=== PATIENT | female | born 1945 | race African-American/Black ===

== ENCOUNTER 2019-11-11 07:38 | Outpatient (CLI) | payer MEDICARE ==
[~2019-11-11] VITALS: Ht 156.2 cm; Wt 77.3 kg
[2019-11-11] MEDS ORDERED: ALBUTEROL SULF8.5 GM INH (07:43)
[2019-11-11] MEDS ORDERED: CARAFATE1 G PO (07:43)
[2019-11-11] MEDS ORDERED: BP MED (07:44)
[2019-11-11] MEDS ORDERED: KLOR-CON M2020 MEQ PO (07:44)
[2019-11-11 08:23] LABS: APTT 25.1 SECONDS (22.8-39.4); INR 0.93 (0.85-1.17)
[2019-11-11 08:51] LABS: BASOPHILS 0.1 % (0-2); EOSINOPHILS 1.3 % (0-7); HEMATOCRIT 44.2 % (36.0-48.0); HEMOGLOBIN 14.6 g/dL (12-16); IMMATURE GRANULOCYTES 0.4 % (0-5); LYMPHOCYTES 42.1 % (15-50); MCH 29.3 pg (26.0-34.0); MCV 88.6 fL (80.0-100.0); MEAN PLATELET VOLUME 9.7 fL (7.4-10.4); NEUTROPHILS 50.1 % (40-80); PLATELET COUNT 269 10x3/uL (130-400); RBC 4.99 10x6/uL (4.00-5.40); RDW 13.1 % (11.5-14.5); WBC 6.7 10x3/uL (4.8-10.8)
[2019-11-11 08:58] LABS: CALC OSMOLALITY 286 mosm/kg (275-300); CALCIUM 9.8 mg/dL (8.5-10.1); CARBON DIOXIDE 19.8 mmol/L (21.0-32.0); CHLORIDE - SERUM 108 mmol/L (98-107); CREATININE - SERUM 1.1 mg/dL (0.6-1.3); GLUCOSE 105 mg/dL (74-106); POTASSIUM - SERUM 3.5 mmol/L (3.5-5.1); SODIUM 143 mmol/L (136-145); UREA NITROGEN 18 mg/dL (7-18); eGFR NON AFRICAN AMERICAN 52 mL/min (90-120)
[2019-11-11 09:13] LABS: ALBUMIN 3.8 g/dL (3.4-5.0); ALKALINE PHOSPHATASE 129 U/L (46-116); ALT (SGPT) 26 U/L (10-68); BILIRUBIN - TOTAL 0.38 mg/dL (0.2-1.3); CKMB 1.3 U/L (0.0-3.6); CREATINE KINASE 209 UL (21-215); MAGNESIUM - SERUM 1.8 mg/dL (1.8-2.4); TROPONIN-I 0.022 ng/mL (0.000-0.060)
[2019-11-11] MEDS ORDERED: FLUTICASONE PRO16 GM NASAL (10:37)
[2019-11-11] MEDS ORDERED: FUROSEMIDE20 MG PO (10:38)
[2019-11-11] MEDS ORDERED: SINGULAIR10 MG PO (10:38)
[2019-11-11] MEDS ORDERED: KLOR-CON 1010 MEQ PO (10:39)
[2019-11-11] MEDS ORDERED: ULTRAM50 MG PO (10:39)
[2019-11-11] MEDS ORDERED: ZANAFLEX4 MG PO (10:41)
[2019-11-11] MEDS ORDERED: DIPROLENE 0.05%60 M1 TOPICAL (10:42)
--- NOTE | 2019-11-11 15:03 | NUR ---
RECEIVED PT FROM ER. PT IS AAO AND UP AD ALESSANDRO. RR EVEN AND UNLABORED ON 2L 02. PIV SALINE LOCKED. TELEMETRY PLACED ON PT, BIGEMINAL PAC'S AT 61. NO S/S OF DISTRESS NOTED. QUICKSTART, MED REQ, AND HISTORY COMPLETE. PT ORIENTED TO ROOM. CALL LIGHT W/I REACH.
[2019-11-11 15:06] VITALS: BP 128/60; Ht 156.2 cm; Wt 77.3 kg
--- NOTE | 2019-11-11 19:19 | NUR ---
PT IS RESTING WITH EYES CLOSED RESP EVEN AND NON LABERED BED LOW AND LOCKED FAMILY IS ALSO PRESENT
[2019-11-11 20:30] VITALS: BP 156/61
[2019-11-12 00:31] VITALS: BP 148/66
--- NOTE | 2019-11-12 01:20 | NUR ---
I have reviewed this patient and I concur with the Shift Assessment completed by the Licensed Practical Nurse today this shift.
[2019-11-12 04:43] VITALS: BP 137/62
--- NOTE | 2019-11-12 07:17 | NUR ---
REPORT RECEIVED. WILL CONTINUE WITH POC. PT CURRENTLY SITTING ON EDGE OF BED. CALL LIGHT W/I REACH. RR EVEN AND UNLABORED ON 2L 02. L.WRIST PIV IS SALINE LOCKED. PT STATES "HUNG HAD THE BEST NIGHT HUNG HAD IN A LONG TIME, I SLEPT GREAT.". PT DENIES ANY NEEDS AT THIS TIME. WILL CTM.
--- NOTE | 2019-11-12 08:03 | HP ---
PATIENT: VIKI ORTIZ MEDICAL RECORD: [id number] ACCOUNT: [id number] LOCATION:[address] : 47 ADMISSION DATE: 11/11/19 PCP: BEATRICE TIDWELL HISTORY AND PHYSICAL EXAMINATION DIAGNOSES: 1. Chest pain compatible with angina. 2. Hypertension. 3. Hyperlipidemia. 4. Palpitations. HISTORY OF PRESENT ILLNESS: Mrs. Viki Ortiz presents with palpitations and chest pain. This has been going on for greater than a week, worse chest pain she had was this morning. Her EKG has bigeminal PACs, but no ST-T abnormalities. She was given Lopressor. It improved the PACs; however, she continues to have them. She is currently pain free. She has no history of ischemic heart disease. She does have a smoking history PHYSICAL EXAMINATION: CONSTITUTIONAL/GENERAL APPEARANCE: Well nourished, well developed, appears stated age. EYES: Lids and conjunctivae noninjected. No discharge. No pallor. ENT: Lips within normal limit. No cyanosis. No pallor. NECK: Carotid arteries, bilateral normal upstroke. No bruits. No thrills. No jugular venous pressure or distention. CERVICAL LYMPH NODES: Nontender. Nonenlarged. THYROID: Not enlarged. No nodules. CARDIOVASCULAR: Precordial exam, nondisplaced. No heaves or pericardial thrills. Rate and rhythm, regular. Heart sounds, normal S1, normal S2. No S3, no gallop, no rub. Systolic murmur, not heard. Diastolic murmur, not heard. RESPIRATORY: Respiratory effort, unlabored. Normal curvature. No thoracic deformity. No chest wall tenderness. Percussion, resonant. Auscultation, clear. No wheezes, no rales, no rhonchi. ABDOMEN: Soft, nondistended, nontender. No abdominal pain, no vomiting and normal appetite. MUSCULOSKELETAL: No joint tenderness, normal gait, normal tone. SKIN: Warm and dry. REVIEW OF SYSTEMS: The patient reports easy bruising but reports no swollen glands. The patient reports no fever, no night sweats, no significant weight gain, no significant weight loss. No significant exercise tolerance. The patient reports no dry eyes, no irritation, no vision change. Patient reports no difficulty hearing and no ear pain. Patient reports no frequent nose bleeds or nose and sinus problems. Patient reports on arm pain on exertion. No shortness of breath while lying down. No history of heart murmur. Patient reports no cough, no wheezing or coughing up blood. Patient reports no abdominal pain, no vomiting. Normal appetite. No diarrhea and not vomiting blood. No nausea and no constipation. Patient reports no incontinence. No difficulty urinating. No hematuria. No increased frequency. Patient reports no muscle aches. No weakness, no arthralgias, no back pain. No swelling of the extremities. Patient reports no abnormal mole, no jaundice, no rashes. Reports no loss of consciousness. No weakness and no numbness. No seizures, dizziness, or headaches. The patient reports no depression, no sleep disturbance, feeling safe in a relationship and no alcohol abuse. Patient reports on fatigue. Reports no runny nose or sinus pressure. No itching, no hives, and no frequent HISTORY AND PHYSICAL [id number] STORMYVIKI sneezing. FAMILY HISTORY: Negative for coronary artery disease, positive for hypertension. SOCIAL HISTORY: She is retired and lives in [facility] with her family. Denies smoking or ETOH. OVERALL IMPRESSION: Chest pain compatible with angina. We will risk stratify with stress testing Cardiolite imaging. Further care depends upon findings of the stress test. TRANSINT:[id number] Voice Confirmation ID: [id number] DOCUMENT ID: [id number] OLIVIA CAZARES MD at 0803 CC: [id number] DICTATION DATE: 11/11/19 1209 SENIOR WEB ARCHITECT: 11/11/19 1318 [facility] [address] [place] [address]
[2019-11-12 08:51] VITALS: BP 137/59
[2019-11-12] MEDS ORDERED: LOPRESSOR25 MG PO (09:34)
--- NOTE | 2019-11-12 10:55 | NUR ---
PT DISCHARGED HOME VIA WHEELCHAIR WITH FAMILY. PIV REMOVED WITH CATHETER TIP FULLY INTACT. TELEMETRY REMOVED AND RETURNED. PT SIGNED PROPER DISCHARGE INSTRUCTIONS AND REMOVED ALL VALUABLES FROM THE ROOM.
--- NOTE | 2019-11-18 11:13 | EC ---
PATIENT:IVAN BURROWS DATE OF SERVICE: 11/11/19 SEX: F MEDICAL RECORD: [id number] DATE OF : 47 LOCATION:[facility] AGE OF PATIENT: 73 ADMISSION DATE: 11/11/19 REFERRING PHYSICIAN: INTERPRETING PHYSICIAN: OLIVIA SHIN MD ECHOCARDIOGRAM REPORT ECHO CHARGES 4 ECHO COMPLETE Date: 11/11/19 CLINICAL DIAGNOSIS: CP ECHOCARDIOGRAPHIC MEASUREMENTS (adult normal given) AC root (d.<3.7cm) 2.5 cm LV Septum d (<1.2 cm> 0.9 cm Valve Excursion 2.0 cm LV Septum (systole) 1.6 cm Left Atria (s.<4.0cm> 3.0 cm LVPW d(<1.2cm) 0.9 cm RV (d.<2.3cm) 2.3 cm LVPW (sytole) 1.0 cm LV diastole(<5.6CM) 4.8 cm MV E-F(>70mm/sec) cm LV systole 3.5 cm LVOT Diameter 1.6 cm MV exc.(>10mm) cm Est.ejection fraction (50-75%) % DOPPLER: LVIT cm/sec A 95 cm/sec E 71 cm/sec LA cm/sec RVSP 21.9 mmHg LVOT 108 cm/sec AOP1/2T m/s Asc. Ao 148 cm/sec RVOT 43 cm/sec RA cm/sec PA 103 cm/sec AV Gradient Peak 8.8 mmHg AV Mean 3.0 mmHg AV Area 2.0 cm MV Gradient Peak 4.5 mmHg MV Mean 1.1 mmHg MV Area cm COMMENTS: [employer] Developer: Molly JOE GRICELDA Noc Analyst: 1 Dr. Shin TAPE# PACS Pericardial Effusion N DATE OF SERVICE: ECHOCARDIOGRAM FINDINGS: 1. Left ventricular chamber size is within normal limits. Left ventricular systolic function is normal. Overall ejection fraction at 55%. 2. Left atrium, right atrium, and right ventricle chamber sizes are within normal limits. 3. Valvular structures have normal structure and motion. ECHOCARDIOGRAM REPORT [id number] IVAN BURROWS 4. Doppler interrogation reveals mild tricuspid regurgitation, no other valvular insufficiency or stenosis. Pulmonary systolic pressure estimated at 22 mmHg. 5. No evidence of pericardial effusion or left ventricular thrombus. TRANSINT:[id number] Voice Confirmation ID: [id number] DOCUMENT ID: [id number] OLIVIA SHIN MD at 1113 CC: [id number] DICTATION DATE: 11/12/19 1011 COMMUNITY MARKETING MANAGER: 11/12/19 1250 DEP CLI 11/12/19 [facility] [address] [place] [address]
--- NOTE | 2019-11-18 11:13 | ST ---
PATIENT:IVAN BURROWS MEDICAL RECORD: [id number] SEX: F LOCATION:[facility] ORDER #: ADMISSION DATE: 11/11/19 AGE OF PATIENT: 73 REFERRING PHYSICIAN: INTERPRETING PHYSICIAN: OLIVIA CAZARES MD DATE OF SERVICE: 11/11/2019 PROCEDURE: Nuclear stress test. INDICATION: Chest pain of unknown etiology. TECHNIQUE: She was exercised on standard Lexiscan protocol with 30 mCi of sestamibi injected at peak stress. FINDINGS: Gated SPECT reveals preserved ejection fraction at 62% with good wall motion and thickening and brightening throughout all segments. SPECT imaging Cardiolite was used as myocardial fusion agent. There is homogeneous uptake throughout all segments at rest and stress with no evidence of inducible ischemia or previous infarction. OVERALL IMPRESSION: 1. This is a normal nuclear stress test with no evidence of inducible ischemia or previous infarction. 2. Gated SPECT reveals a preserved ejection fraction at 62%. In this patient with ongoing symptomatology, the current scan does not suggest the presence of hemodynamically significant coronary artery disease. Evaluate noncardiac etiology of chest pain. TRANSINT:[id number] Voice Confirmation ID: [id number] DOCUMENT ID: [id number] OLIVIA CAZARES MD at 1113 CC: [id number] DICTATION DATE: 11/11/19 1637 AUTOMATIC PAD MAKING MACHINE OPERATOR: 11/12/19 0729 [facility] [place] CLI 11/12/[address] [address]
--- NOTE | 2019-11-18 11:13 | DS ---
PATIENT:IVAN ORTIZ :47 MEDICAL RECORD: [id number] DISCHARGE SUMMARY ADMISSION DATE: 11/11/19 DISCHARGE DATE: 11/12/19 DATE OF DISCHARGE: 11/12/2019 DIAGNOSES: 1. Palpitations. 2. Premature atrial contractures. 3. Chest pain. 4. Normal nuclear stress test this admission. HOSPITAL COURSE: Ms. Ortiz presents with palpitations and chest pain. Stress testing was normal. She was placed on Lopressor, this relieved the palpitations and PACs, discharged home with the addition of Lopressor ER 25 mg to her medical regimen. Follow up with [facility] in 1 month. TRANSINT:[id number] Voice Confirmation ID: [id number] DOCUMENT ID: [id number] OLIVIA CAZARES MD at 1113 CC: [id number] DICTATION DATE: 11/12/19 0804 MEDICAL RECORD CONSULTANT: 11/13/19 0547 DEP CLI 11/12/[address] [address]
== END 2019-11-12 10:56 | disposition home or self-care (01) ==
LOC: D.ER 07:38 → D.OPS 07:38 → D.M2 09:39 → EDSTATUS 10:30 → D.OPS 11-12 10:56
PROVIDERS: Emergency Medicine; ATTEND Internal Medicine Interventional Cardiology
DX: R07.89 Other chest pain (principal); I10 Essential (primary) hypertension; E78.5 Hyperlipidemia, unspecified; R00.2 Palpitations